=== PATIENT | female | born 1950 | race Caucasian/White ===

== ENCOUNTER 2016-09-27 13:42 | Emergency (ER) | payer BC ==
[~2016-09-27] VITALS: Ht 165.1 cm; Wt 92.9 kg
[~2016-09-27 13:42] MED LIST: LVQ750 PO; NRV5 PO; PRD10 PO; ROPI0.5T PO; SIMV20TA2 PO; TRAZ1TAB5 PO; TRMCR115 EXT
[2016-09-27 13:46] VITALS: TEMP 36.6; Ht 165.1 cm; Wt 92.9 kg
[2016-09-27] MEDS ORDERED: LEVO1TAB33 PO (14:15)
[2016-09-27] MEDS ORDERED: VNTHFA/IN INH (14:17)
[2016-09-27] MEDS ORDERED: BACITRACIN OINT 15 GM TUBE EXT ONE (15:00)
[2016-09-27] MEDS ORDERED: CLINDAMYCIN 600 MG/54 ML D5W IV ONE (15:15)
[2016-09-27] MEDS ORDERED: CLINDAMYCIN IV 600 MG in DEXTROSE 5% ADD-VANTAGE 50ML 50 ML IV ONE (15:30)
[2016-09-27] MEDS ORDERED: SODIUM CHLORIDE 0.9% 1000ML 1,000 ML IV STA (15:36)
--- NOTE | 2016-09-27 15:36 | DIAGNOSTIC IMAGING REPORT ---
CHEST 2 VIEWS ROUTINE CLINICAL HISTORY: cough COMPARISON STUDY: 10/09/2014 FINDINGS: The heart is enlarged. The patient was unable to raise his arm for the lateral view and the lateral view is therefore limited from a positioning standpoint. There are low lung volumes. There is mild hilar prominence. There is mild elevation of the interstitium a finding which may be secondary to a suboptimal inspiratory effort.[ No pleural effusions are visualized IMPRESSION: Technically limited study. Mild interstitial prominence, a finding which may be related to a suboptimal inspiratory effort. Mild right hilar prominence, likely vascular. No evidence of lobar consolidation Electronically signed by: Addy Trinh M.D. 09/27/2016 3:35 PM Dictated Date/Time: 09/27/2016 3:33 PM
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
[2016-09-27 16:02] LABS: BASO % 0.3 %; BASO ABS # 0.02 K/uL (0-0.2); COMPLETE YES; EOS % 0.3 %; HEMATOCRIT 35.8 % (37-47); IG% 0.1 %; LYMPH % 32.8 %; LYMPH ABS # 2.32 K/uL (1.2-3.4); MEAN CELL VOLUME 85.4 fL (80-100); MEAN CORPUSCULAR HEMOGLOBIN 29.4 pg (25-34); MEAN CORPUSCULAR HGB CONC 34.4 g/dl (32-36); MEAN PLATELET VOLUME 9.2 fL (7.4-10.4); MONO % 10.2 %; NEUT % 56.3 %; PLATELET COUNT 247 K/uL (130-400); RED BLOOD COUNT 4.19 M/uL (4.2-5.4); WHITE BLOOD COUNT 7.07 K/uL (4.8-10.8)
[2016-09-27 16:26] LABS: BUN/CREATININE RATIO 22.6 (10-20); CREATININE 0.85 mg/dl (0.60-1.20); POTASSIUM 3.1 mmol/L (3.5-5.1)
[2016-09-27] MEDS ORDERED: POTASSIUM CHLORIDE 10 MEQ TABCR PO STA (16:42)
--- NOTE | 2016-09-27 17:00 | DIAGNOSTIC IMAGING REPORT ---
HEAD CT NONCONTRAST CT DOSE: 537.48 mGy.cm HISTORY: fall, syncope TECHNIQUE: Multiaxial CT images of the head were performed without the use of intravenous contrast. Automated exposure control was utilized for this study. Comparison: Head CT 12/07/2011. Findings: Mild mucosal thickening within the residual paranasal sinuses. The mastoid air cells are clear. The calvarium and skull base are intact. The ventricles and sulci are within normal limits. There is no mass, hematoma, midline shift, or acute infarct. Impression: No acute intracranial abnormality. Electronically signed by: Guille Alfonso M.D. 09/27/2016 4:58 PM Dictated Date/Time: 09/27/2016 4:51 PM
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
[2016-09-27 19:07] VITALS: BP 144/88; PULSE 70; O2SAT 98
[2016-09-27] MEDS ORDERED: CYTM5 PO (19:28)
[2016-09-27] MEDS ORDERED: LEVO75TA25 PO (19:28)
[2016-09-27] MEDS ORDERED: CHOL100010 PO (19:28)
== END 2016-09-27 19:08 | disposition short-term general hospital (02) ==
LOC: C.EDB 13:44 → C.EDC 19:08
DX: T21.32XA Burn of third degree of abdominal wall, initial encounter (principal); T24.312A Burn of third degree of left thigh, initial encounter; X12.XXXA Contact with other hot fluids, initial encounter; S09.90XA Unspecified injury of head, initial encounter; R55 Syncope and collapse; W19.XXXA Unspecified fall, initial encounter; E87.6 Hypokalemia; K21.9 Gastro-esophageal reflux disease without esophagitis; E78.5 Hyperlipidemia, unspecified; E03.9 Hypothyroidism, unspecified; M19.90 Unspecified osteoarthritis, unspecified site; Z80.9 Family history of malignant neoplasm, unspecified; Z82.49 Family history of ischemic heart disease and other diseases of the circulatory system; Z79.899 Other long term (current) drug therapy

== ENCOUNTER → 2017-06-27 | Outpatient (CLI) | payer BC ==
[~2017-06-27] MED LIST changes: +CHOL100010 PO; +CYTM5 PO; +LEVO1TAB33 PO; +LEVO75TA25 PO; -LVQ750 PO; -PRD10 PO; -TRMCR115 EXT; +VNTHFA/IN INH
--- NOTE | 2017-06-27 10:18 | DIAGNOSTIC IMAGING REPORT ---
(CHEST) THORAX WITHOUT CLINICAL HISTORY: R91.1 pulmonary nodule. COMPARISON STUDY: 06/16/2016 CT DOSE: 353.21 mGy.cm TECHNIQUE: CT of the thorax was performed from the thoracic inlet to the lung bases. Images are reviewed in the axial, sagittal, and coronal planes. IV contrast was not administered for this examination. A dose lowering technique was utilized adhering to the principles of ALARA. FINDINGS: Thyroid: Imaged portions of the thyroid gland are normal in appearance. Thoracic aorta: The thoracic aorta is normal in course and caliber, noting standard 3 vessel arch anatomy. Heart: There are mild pulmonary artery calcifications. There is a trace pericardial effusion. Lungs and pleural spaces: There is no focal pulmonary consolidation. There are no pleural effusions. There is a stable 3 mm left apical pulmonary nodule. There is a stable 3 mm lingular nodule. There is a stable 3 mm left lower lobe pulmonary nodule. There is a stable 6 mm left lower lobe pulmonary nodule. The previously identified 5 mm subpleural left lower lobe pulmonary nodule is no longer evident. Mediastinum: There is no mediastinal lymphadenopathy. Chen: Clear. Axilla: Clear. Upper abdomen: Partially visualized upper abdominal viscera is within normal limits. Skeletal structures: There are no lytic or blastic osseous lesions. IMPRESSION: Multiple subcentimeter solid left lung pulmonary nodules remain essentially stable. Electronically signed by: Addy Trinh M.D. 06/27/2017 10:16 AM Dictated Date/Time: 06/27/2017 10:09 AM
== END | disposition home or self-care (01) ==
LOC: C.CTS 09:50
PROVIDERS: ATTEND Internal Medicine Pulmonary Disease
DX: R91.1 Solitary pulmonary nodule (principal)